=== PATIENT | male | born 1975 | race Caucasian/White ===

== ENCOUNTER 2019-01-04 15:10 | Emergency (ER) | payer BC ==
[2019-01-04] MEDS ORDERED: Aspirin Chewable 81 MG TAB ONE (15:25)
[2019-01-04] MEDS ORDERED: Nitroglycerin 2% Ointment 1 INCH/1 GM Packet ONE (15:25)
[2019-01-04] MEDS ORDERED: Lidocaine Viscous Sol 2% 15 ml UD Cup ONE (15:31)
[2019-01-04] MEDS ORDERED: Mag-Al Plus 1200 MG/1200 MG/120 MG/30 ML UDCUP ONE (15:31)
[2019-01-04 15:39] LABS: #Eosinphils 0.1 thou/uL (0.0-0.7); #Lymphocytes 1.9 thou/uL (1.20-3.40); #Monocytes 0.6 thou/uL (0.11-0.59); #Neutrophils 5.4 thou/uL (1.40-6.50); %Basophils 0.5 % (0.0-1.0); %Eosinophils 1.1 % (0.0-10.0); %Lymphocytes 23.3 % (21.0-51.0); %Monocytes 7.6 % (0.0-10.0); %Neutrophils 67.5 % (42.0-75.0); Hemoglobin 14.5 g/dL (14.0-18.0); Mean Corpuscular HGB CONC 33.1 g/dL (32.0-36.0); Mean Corpuscular Hemoglobin 28.6 pg (27.0-31.0); Mean Corpuscular Volume 86.5 fL (78.0-98.0); Mean Platelet Volume 6.6 fL (7.4-10.4); Platelet Count 252 thou/uL (130-400); RBC Distribution Width 11.9 % (11.5-14.5); Red Blood Cell (RBC) Count 5.06 mill/uL (4.70-6.10)
--- NOTE | 2019-01-04 15:50 | RAD ---
Chest one view HISTORY: Chest pain. FINDINGS: Cardiac silhouette is magnified by projection. Shallow inspiration accentuates pulmonary ma rkings. Mediastinum is midline. No lobar consolidation or evidence of pneumothorax. 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 IMPRESSION: No active cardiopulmonary abnormalities are demonstrated.
[2019-01-04 15:57] LABS: ALT (SGPT) 34 U/L (8-55); AST (SGOT) 20 U/L (5-34); Albumin 4.7 g/dL (3.5-5.0); Alkaline Phosphatase 97 U/L (40-110); Anion Gap 16 mmol/L (10-20); BUN (Urea Nitrogen) 13 mg/dL (8.9-20.6); Bilirubin, Total 0.6 mg/dL (0.2-1.2); CK (CPK) 172 U/L (30-200); Calc. Creatinine Clearance 0 mL/min (70-130); Calcium 9.4 mg/dL (7.8-10.44); Carbon Dioxide 22 mmol/L (22-29); Chloride 107 mmol/L (98-107); Estimated GFR-MDRD 83; Globulin 2.1 g/dL (2.4-3.5); Glucose 81 mg/dL (70-105); Lipase 29 U/L (8-78); Potassium 3.3 mmol/L (3.5-5.1); Protein, Total 6.8 g/dL (6.0-8.3); Sodium 142 mmol/L (136-145)
[2019-01-04] MEDS ORDERED: Fentanyl 100 MCG/2 ML VIAL ONE (16:00)
--- NOTE | 2019-01-04 16:35 | CT ---
CT angiogram of chest and abdomen performed with intravenous contrast enhancement with 3-D reconstruc tions HISTORY: Chest pain radiating to back. COMPARISON: None. FINDINGS: The lungs show subsegmental atelectatic changes in the lung bases. No pulmonary nodules or pleural effusions. There is no significant mediastinal or hilar lymphadenopathy. The thoracic aorta is normal in caliber . No evidence for dissection. Hypodensities within the liver are noted some of which are too small to characterize but appear to re present cysts. The spleen, pancreas and gallbladder regions appear unremarkable. A small [id number] was used for this examination and liver and spleen are not seen in their entirety. Right and left adrenal glands and right and left kidneys are normal in size. The abdominal aorta is n ormal in caliber. There is no signs of dissection. There is no evidence of stenosis of the celiac or superior mesenteric arteries. No renal artery stenosis is identified. There is a patent BRANDY. IMPRESSION: No evidence of aortic aneurysm or dissection.
[2019-01-04] MEDS ORDERED: Metoprolol Tartrate 5 MG/5 ML VIAL ONE ×3 (16:46→17:07)
[2019-01-04] MEDS ORDERED: Lorazepam 2 MG/ML VIAL ONE (17:14)
[2019-01-04 18:41] LABS: Troponin I Less than 0.010 ng/mL (< 0.028)
[2019-01-04] MEDS ORDERED: Metoprolol Tartrate 25 MG TAB ONE (19:22)
== END 2019-01-04 19:40 | disposition home or self-care (01) ==
LOC: NAV ERS 15:10
DX: S29.011A Strain of muscle and tendon of front wall of thorax, initial encounter (principal); I10 Essential (primary) hypertension; Z87.891 Personal history of nicotine dependence; X50.9XXA Other and unspecified overexertion or strenuous movements or postures, initial encounter
CPT/HCPCS: 71045; 71275; 72191; 74175; 80053; 82550; 83690; 84484; 85025; 93005; 94760; 96374; 96375; J2060; J3010

== ENCOUNTER 2022-09-19 10:15 | Outpatient (CLI) | payer BC | END 2022-09-19 10:16 | disposition home or self-care (01) | LOC: NAV RAD 10:15 | PROVIDERS: ATTEND Family Medicine | DX: M25.512 Pain in left shoulder (principal) ==